=== PATIENT | male | born 1975 | race Caucasian/White ===

== ENCOUNTER 2023-01-18 18:39 | Emergency (ER) | payer BC ==
[~2023-01-18] VITALS: Ht 186.7 cm; Wt 102.1 kg
[2023-01-18] MEDS ORDERED: DEPAKOTE ER500 MG PO (18:51)
[2023-01-18] MEDS ORDERED: DEXAMETHASONE2 MG (18:51)
[2023-01-18] MEDS ORDERED: PROZAC20 MG (18:52)
[2023-01-18] MEDS ORDERED: TRAZODONE HCL150 MG (18:52)
[2023-01-18] MEDS ORDERED: PROTONIX40 MG (18:52)
[2023-01-18] MEDS ORDERED: ATIVAN0.5 M1 (18:52)
== END 2023-01-18 23:58 | disposition home or self-care (01) ==
LOC: ER 18:39
DX: R56.9 Unspecified convulsions (principal); Z85.89 Personal history of malignant neoplasm of other organs and systems; I69.954 Hemiplegia and hemiparesis following unspecified cerebrovascular disease affecting left non-dominant side